=== PATIENT | female | born 1980 | race Caucasian/White ===

== ENCOUNTER 2017-04-01 19:50 | Emergency (ER) | payer SELFPAY ==
[~2017-04-01] VITALS: Ht 157.5 cm; Wt 84.1 kg
[2017-04-01 19:52] VITALS: BP 166/84; PULSE 77; RESP 16; TEMP 98.9; O2SAT 97
--- NOTE | 2017-04-01 20:21 | PD ---
Physical Exam Date Seen by Provider: Apr 01, 2017 Time Seen by Provider: 20:14 Narrative 36-year-old female presents to the emergency department reporting a broken tooth in another chipped tooth. Current pain is 6/10. Data Data Last Documented VS Vital Signs Date Time Temp Pulse Resp B/P (MAP) Pulse Ox O2 Delivery O2 Flow Rate FiO2 04/01/17 19:52 98.9 77 16 166/84 (111) 97 MDM Supervised Visit with LENKA: No Narrative Course 36-year-old female presents to the emergency department for evaluation of dental pain. Patient was initially seen in triage. She left AGAINST MEDICAL ADVICE before she could be moved to medical bed. Diagnosis Primary Impression: Left against medical advice Scripts No Active Prescriptions or Reported Meds Disposition: 07 AGAINST MEDICAL ADVICE Shanel Benjamin Apr 01, 2017 20:20
== END 2017-04-01 22:08 | disposition left against medical advice (07) ==
LOC: NED 19:50
DX: Z53.21 Procedure and treatment not carried out due to patient leaving prior to being seen by health care provider (principal)
CPT/HCPCS: 99281

== ENCOUNTER 2017-05-12 19:03 | Emergency (ER) | payer SELFPAY ==
[~2017-05-12] VITALS: Ht 157.5 cm; Wt 86.4 kg
[2017-05-12 19:15] VITALS: BP 134/84; PULSE 99; RESP 18; TEMP 98.4; O2SAT 100
[2017-05-12] MEDS ORDERED: AMOXICILLIN/CLAVULANATE K 875 MG TAB PO ONE (22:00)
--- NOTE | 2017-05-12 22:03 | PD ---
HPI Chief Complaint: Edema Time Seen by Provider: 21:50 Travel History International Travel<30 days: No Contact w/Intl Traveler<30days: No Traveled to known affect area: No History of Present Illness HPI 36-year-old female presents emergency department complaining of bilateral hands and feet swelling for approximately 1 week. Says her feet feel "hot, burning, and tingling" and they have been swelling for several days. Says in addition, she was bit by her cat and her friend's dog about 5 days ago. The PET immunizations are up-to-date and they are well known to her and her friend. Patient states she drinks alcohol occasionally and does not drink every day. She does not have a primary care physician. Denies chronic medical issues or medication use. Patient denies trauma, fever, chills, chest pain, shortness of breath. PFSH Past Medical History Arthritis: No Anxiety: Yes Depression: Yes Heart Rhythm Problems: No Cancer: No Cardiovascular Problems: No High Cholesterol: No Chest Pain: No Congestive Heart Failure: No COPD: No Cerebrovascular Accident: No Diabetes: No Diminished Hearing: No Gastrointestinal Disorders: No GERD: No Genitourinary: No Headaches: Yes Hepatitis: No Hiatal Hernia: No Hypertension: No Kidney Stones: Yes Musculoskeletal: Yes (JAW BROKEN, ribs, R knee) Neurologic: No Reproductive: No Respiratory: No Immunizations Current: Yes Migraines: No Renal Failure: No Seizures: No Sleep Apnea: No Thyroid Disease: No Ulcer: No : 4 Para: 3 Tubal Ligation: Yes Past Surgical History Abdominal Surgery: No Cardiac Surgery: No Section: Yes (X2) Ear Surgery: No Endocrine Surgery: No Eye Surgery: No Genitourinary Surgery: No Gynecologic Surgery: Yes ( CERCLAGE) Neurologic Surgery: No Oral Surgery: Yes (WISDOM TEETH EXTRACTED ) Pacemaker: No Thoracic Surgery: No Other Surgery: Yes Social History Alcohol Use: Yes (GREATER THAN 5TH PER DAY) Tobacco Use: Yes (1/2 PPD) Substance Use: No (hx of) Allergies-Medications (Allergen,Severity, Reaction): Coded Allergies: No Known Allergies (Unverified , 12/25/15) Reported Meds & Prescriptions Reported Meds & Active Scripts Active Augmentin (Amoxicillin-Clavulanate) 875-125 Mg Tab 1 Tab PO BID Review of Systems Except as stated in HPI: all other systems reviewed are Neg Physical Exam Narrative GENERAL: WD, WN in NAD SKIN: Focused skin assessment warm/dry. HEAD: Atraumatic. Normocephalic. EYES: Pupils equal and round. No scleral icterus. No injection or drainage. ENT: No nasal bleeding or discharge. Mucous membranes pink and moist. NECK: Trachea midline. No JVD. CARDIOVASCULAR: Regular rate and rhythm. No murmur appreciated. RESPIRATORY: No accessory muscle use. Clear to auscultation. Breath sounds equal bilaterally. GASTROINTESTINAL: Abdomen soft, non-tender, nondistended. Hepatic and splenic margins not palpable. MUSCULOSKELETAL: No obvious deformities. No clubbing. No cyanosis. No edema. Bilateral upper extremities-fingertips distal to MCPs with mild erythema with mild edema, neurovascularly intact. Bilateral lower extremities without edema, erythema, neurovascularly intact. NEUROLOGICAL: Awake and alert. No obvious cranial nerve deficits. Motor grossly within normal limits. Normal speech. PSYCHIATRIC: Appropriate mood and affect; insight and judgment normal. Data Data Last Documented VS Vital Signs Date Time Temp Pulse Resp B/P (MAP) Pulse Ox O2 Delivery O2 Flow Rate FiO2 05/12/17 19:15 98.4 99 18 134/84 (101) 100 Orders Orders Amoxicil-Clavulanate (Augmentin) (05/12/17 22:00) Ed Discharge Order (05/12/17 22:25) [facility] Medical Decision Making Medical Screen Exam Complete: Yes Emergency Medical Condition: Yes Differential Diagnosis Bilateral upper extremity cellulitis, cat bites, prophylaxis, vitamin deficiency Narrative Course 36-year-old female presents emergency room for evaluation of bilateral hands and feet burning and edema. Denies recent exposures, frequent handwashing, new foods, new job. Vital signs stable. Physical exam findings unremarkable lower extremities. No edema or erythema present. Bilateral upper hands with erythema with mild edema distal to MCPs. Pattern is consistent with a contact dermatitis although patient denies history of contacts. Review the EMR demonstrates patient has had significant alcohol use. Patient will be covered with Augmentin for the animal bites. Last tetanus in 2017. I suspect that patient may have a vitamin deficiency resulting in some of her symptoms today although do not feel that this requires emergent replacement. Patient's history and physical is consistent with some form of neuropathy. I did advise that patient may have a vitamin deficiency and advised that she should take a multivitamin daily. Strongly advised patient follow-up with a primary care physician for further treatment and evaluation. Patient is strongly advised to follow-up with her primary care physician. [place] information given. Diagnosis Primary Impression: Animal bite Referrals: [facility] Additional Instructions: Follow-up with [facility] as discussed. Consider taking a multivitamin daily for your symptoms. Ensure adequate fluid intake and proper nutrition. If your symptoms persist or worsen return to the emergency department immediately. Take all medications as prescribed. Scripts Amoxicillin-Clavulanate (Augmentin) 875-125 Mg Tab 1 TAB PO BID for Infection, #14 TAB 0 Refills Prov: Juliana Jacobs MD 05/12/17 Disposition: 01 DISCHARGE HOME Condition: Stable Brittanie Feliz May 12, 2017 22:03
[2017-05-12] MEDS ORDERED: AUGM875T3 PO (22:24)
== END 2017-05-12 22:50 | disposition home or self-care (01) ==
LOC: NED 19:03 → NEPA 22:50
DX: T14.8XXA Other injury of unspecified body region, initial encounter (principal); W64.XXXA Exposure to other animate mechanical forces, initial encounter
CPT/HCPCS: 99283

== ENCOUNTER 2017-05-13 06:56 | Emergency (ER) | payer SELFPAY ==
[~2017-05-13] VITALS: Ht 157.5 cm; Wt 90.0 kg
[~2017-05-13 06:56] MED LIST: AUGM875T3 PO
[2017-05-13 07:30] VITALS: BP 167/108; PULSE 113; RESP 16; TEMP 98.4; O2SAT 98
[2017-05-13 08:44] LABS: BACTERIA, URINE OCC /hpf; BILIRUBIN, URINE NEG (NEG); BLOOD, URINE SMALL (NEG); GLUCOSE,URINE NEG (NEG); KETONE, URINE 10 mg/dL (NEG); NITRITE,URINE NEG (NEG); PH, URINE 6.5 (5.0-8.5); SQUAMOUS EPITHELIAL CELL URINE 1 /hpf (0-5); URINE COLOR YELLOW (YELLW/STRAW); URINE LEUKOCYTE ESTERASE LARGE (NEG); WHITE BLOOD CELL CLUMPS OCC
== END 2017-05-13 10:30 | disposition left against medical advice (07) ==
LOC: NEPD 06:56
DX: Z00.00 Encounter for general adult medical examination without abnormal findings (principal); Z53.21 Procedure and treatment not carried out due to patient leaving prior to being seen by health care provider
CPT/HCPCS: 81001; 87086; 99281